=== PATIENT | female | born 1965 | race Caucasian/White ===

== ENCOUNTER 2023-10-17 07:37 | Inpatient (IN) ==
--- NOTE | 2023-09-20 10:34 | PAT Medication Instructions ---
Medication Instructions Date of Service September 20, 2023 Home Medications Medication Instructions Recorded miscellaneous medical supply #1 ea 09/06/22 blood pressure test kit-medium #1 ea 09/07/22 albuterol sulfate 90 mcg/actuation 2 inh inhalation Q6H PRN Wheezing 12/15/22 aerosol inhaler and SOB #3 Inhalers acetaminophen 325 mg tablet (Tylenol) 650 mg PO BID PRN albuterol sulfate 90 mcg/actuation aerosol inhaler 2 inh inhalation Q6H PRN cyanocobalamin (vitamin B-12) 1,000 mcg tablet (Vitamin B-12) 1,000 mcg PO QAM ibuprofen 200 mg tablet 200 mg PO Q6H PRN ASK your surgeon for instructions ibuprofen 200 mg tablet 200 mg PO Q6H PRN DO NOT take the morning of surgery cyanocobalamin (vitamin B-12) 1,000 mcg tablet (Vitamin B-12) 1,000 mcg PO QAM Take morning of surgery With a small sip of water, OTHERWISE NOTHING TO EAT OR DRINK AFTER MIDNIGHT: acetaminophen 325 mg tablet (Tylenol) 650 mg PO BID PRN(if needed) albuterol sulfate 90 mcg/actuation aerosol inhaler 2 inh inhalation Q6H PRN(use if needed; please bring with you to hospital day of surgery if possible) Take evening before surgery acetaminophen 325 mg tablet (Tylenol) 650 mg PO BID PRN(if needed) albuterol sulfate 90 mcg/actuation aerosol inhaler 2 inh inhalation Q6H PRN(if needed) Other Notes If you have any questions please call us at [phone] or [phone] or [phone] or [phone]
--- NOTE | 2023-09-26 13:23 | Anesthesiology Consultation ---
Date of Service September 26, 2023 Assessment & Plan (1) Encounter for pre-operative examination: - awaiting surgeon ordered medical clearance. Chart Review Chart Review: Pending: Refer to Additional Notes / Consult section and Patient seen in Pre Admission Testing Teaching & Discussion Pre-Anesthesia Teaching/Discussion Notes: Instructed NPO after midnight before surgery, except medications with 15 cc of water. Medication instructions provided according to the PAT guidelines. History Surgery Operation Date: 10/17/23 10:05 Proposed Procedures p L4-L5 Decompression and Fusion with Spinal Cord Monitoring - Bienvenido Babb DO Height/Weight Height: 5 ft 3 in Weight: 58.2 kg Allergies Allergy/AdvReac Type Severity Reaction Status Date / Time tramadol Allergy Intermediate hives, Verified 09/20/23 09:04 itchy Medications Home Medications Medication Instructions Recorded Confirmed Last Taken acetaminophen 325 mg tablet 650 mg PO BID PRN Pain 06/16/20 09/20/23 04/01/22 10:30 (Tylenol) miscellaneous medical supply #1 ea 09/06/22 09/05/23 Unknown blood pressure test kit-medium #1 ea 09/07/22 09/05/23 Unknown albuterol sulfate 90 mcg/actuation 2 inh inhalation Q6H PRN Wheezing 12/15/22 09/20/23 Unknown aerosol inhaler and SOB #3 Inhalers cyanocobalamin (vitamin B-12) 1,000 mcg PO QAM 09/20/23 09/20/23 Unknown 1,000 mcg tablet (Vitamin B-12) ibuprofen 200 mg tablet 200 mg PO Q6H PRN Pain 09/20/23 09/20/23 Unknown Past Medical History Medical History (Updated 09/26/23 @ 14:02 by Alysha Troncoso PA-C) Alcohol abuse 5-6 beers per day Chronic back pain Cigarette smoker COPD (chronic obstructive pulmonary disease) controlled, stable per pt; last rescue inhaler use 1 month ago Gallbladder sludge GERD (gastroesophageal reflux disease) controlled, stable per pt HTN (hypertension) had been on lisinopril for HTN. pt stopped d/t SE. not currently taking medication for HTN. Lumbar radiculopathy Lung nodule PCP monitoring Migraine HX Sacroiliitis Patient denies h/o stroke, seizures, heart attack, heart failure, DM, blood clots/DVTs or blood transfusions. Exercise / Class Metabolic Activity III < 4 Walking/Shop/Light housework (denies chest discomfort or shortness of breath with usual activities) Past Family History Family History Daughter Breast cancer Sister Cervical cancer Breast cancer Lung cancer Mother Heart disease Kidney disease Myocardial infarction COPD (chronic obstructive pulmonary disease) Stroke Diabetes Father Myocardial infarction Lung disease Grandfather Myocardial infarction Grandmother Myocardial infarction Brother Heart disease Myocardial infarction Parkinson disease Colorectal cancer Uncle Leukemia Sister Breast cancer Brother Prostate cancer Other No family history of adverse response to anesthesia Past Surgical History Surgical History (Updated 09/26/23 @ 14:00 by Alysha Troncoso PA-C) H/O foot surgery x5 on left History of anesthesia reaction slow to wake up, denies needing re-intubation History of appendectomy History of bilateral tubal ligation History of delivery x3 History of colonoscopy 2021 History of colposcopy History of dilation and curettage History of esophagogastroduodenoscopy (EGD) History of lumbar spinal fusion x2 History of tonsillectomy History of wisdom tooth extraction Past Anesthesia History No Family Hx of Anesthesia Complications and Other (slow to wake ) History of PONV No Hx of PONV and No Hx of Motion Sickness Social History Smoking Status: Current every day smoker (-advised) tobacco type: cigarettes Smoking cigarettes per day: 3 Do You Dip or Chew Tobacco: No Hx Alcohol Use: Yes Alcohol type: beer alcohol intake frequency: 3 or more drinks per day Alcohol Intake Frequency Comment: 5-6 per day; denies h/o withdrawal, seizures or tremors Hx Substance Use: No substance use type: does not use Review of Systems Snoring, denies witnessed apneas. Patient denies chest pain, shortness of breath, dyspnea on exertion, fever, chills, cough, wheezing, or palpitations. Physical Exam Vital Signs Vitals BP 134/86 P 88 TEMP 97.9 SP02 96% on RA RESP 17 Physical Patient resting comfortably in chair in no acute distress, alert and oriented, responding appropriately throughout visit Full cervical extension range of motion without pain TMD 3.5 finger breadths Mallampati Score 2 Dentition: one broken tooth; denies loose teeth, caps/crowns, implants or bridges Lungs: normal respiratory effort. Good air movement, clear throughout to auscultation, no adventitious breath sounds Cardiac: regular rate and rhythm, no murmurs noted Carotid arteries: negative bruit bilat Lab Results Anesthesia Preop Results Results Anesthesia Widget: WBC 6.89 K/ul (4.8-10.8) 09/07/23 Hgb 14.2 g/dl (12.0-16.0) 09/07/23 Hct 42.7 % (37.0-47.0) 09/07/23 Plt 277 K/uL (130-400) 09/07/23 Na 140 mmol/L (136-145) 09/07/23 K 4.2 mmol/L (3.5-5.1) 09/07/23 Cl 107 mmol/L (98-107) 09/07/23 CO2 28 mmol/L (21-32) 09/07/23 BUN 10 mg/dl (6-23) 09/07/23 Creat 0.50 mg/dl (0.6-1.2) L 09/07/23 Glucose Level 93 mg/dl (70-99(Fasting)) 09/07/23 PT 10.6 Seconds (9.0-12.0) 09/26/23 PTT 25 Seconds (21-31) 09/26/23 INR 1.0 (0.9-1.1) 09/26/23 Urine Color Yellow 09/26/23 Urine Appearance Clear (Clear) 09/26/23 Urine pH 5.0 (4.5-7.5) 09/26/23 Urine Specific [place] 1.009 (1.000-1.030) 09/26/23 Urine Protein Negative (Negative) 09/26/23 Urine Glucose (UA) Negative (Negative) 09/26/23 Urine Ketones Negative (Negative) 09/26/23 Urine Blood Negative (Negative) 09/26/23 Urine Nitrite Negative (Negative) 09/26/23 Urine Bilirubin Negative (Negative) 09/26/23 Urine Urobilinogen Negative (Negative) 09/26/23 Urine Leukocyte Esterase Trace (Negative) H 09/26/23 Urine WBC (Auto) 1-5 /hpf (0-5) 09/26/23 Urine RBC (Auto) 0-4 /hpf (0-4) 09/26/23 Urine Hyaline Casts (Auto) 1-5 /lpf (0-5) 09/26/23 Urine Epithelial Cells (Auto) >30 /lpf (0-5) H 09/26/23 Urine Bacteria (Auto) Negative (Negative) 09/26/23 Blood Type O Positive 09/26/23 Antibody Screen NEGATIVE 09/26/23 Testing Electrocardiogram Date: 02/03/23 Sinus rhythm, rate 63 bpm Other Testing Chest CT 11/09/22 Stable right lung pulmonary nodules consistent with a benign nature superimposed upon mild emphysematous changes Minimal interval increase in a 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
[~2023-10-17 07:37] MED LIST: DEXAMETHASONE SOD INJ 4 MG/ML VIAL ONE; GLYCOPYRROLATE 0.2 MG/ML VIAL ONE; LIDOCAINE 2% 2 ML VIAL/AMP(20MG/ML) INFIL ONE; MIDAZOLAM HCL 1 MG/ML 2ML VIAL ONE; ONDANSETRON INJ 2 MG/ML 2 ML VIAL ONE; PROPOFOL IV EMULSION 10 MG/ML 20 ML VIAL IV ONE; ROCURONIUM BROMIDE 10 MG/ML 5 ML VIAL IV ONE; SUGAMMADEX SODIUM 200 MG/2 ML VIAL IV ONE; fentaNYL citrate PF 100 MCG/2 ML VIAL ONE
[2023-10-17] MEDS: ACETAMINOPHEN 500 MG TAB PO SCH (08:32)
[2023-10-17] MEDS: GABAPENTIN 600 MG DOSE PO SCH (08:32)
[2023-10-17] MEDS: LR 60ML/HR IV SCH (08:32)
[2023-10-17] MEDS: CeleBREX 200 MG CAP PO SCH (08:32)
[2023-10-17] MEDS: LR 15ML/HR IV SCH (08:33)
--- NOTE | 2023-10-17 09:36 | History & Physical Bridge Note ---
Date of Service October 17, 2023 History & Physical Bridge Note I have examined the patient, reviewed the History & Physical and in the interval since the performance of the History & Physical I have noted the following changes of clinical significance: no changes noted
--- NOTE | 2023-10-17 09:37 | History & Physical Report ---
Date of Service October 17, 2023 History of Present Illness Chief Complaint: Back and leg pain Primary Care Provider: Sandy Chase DO This is a 4-year-old female who presents with chronic persistent back and leg pain and failing course of nonoperative care she is here for surgical invention. Allergies Allergy/AdvReac Type Severity Reaction Status Date / Time tramadol Allergy Intermediate hives, Verified 10/17/23 08:08 itchy Home Medications Medication Instructions Recorded Confirmed Type acetaminophen 325 mg tablet 650 mg PO BID PRN Pain 06/16/20 10/17/23 History (Tylenol) miscellaneous medical supply #1 ea 09/06/22 09/29/23 Rx blood pressure test kit-medium #1 ea 09/07/22 09/29/23 Rx albuterol sulfate 90 mcg/actuation 2 inh inhalation Q6H PRN Wheezing 12/15/22 10/17/23 Rx aerosol inhaler and SOB #3 Inhalers cyanocobalamin (vitamin B-12) 1,000 mcg PO QAM 09/20/23 10/17/23 History 1,000 mcg tablet (Vitamin B-12) ibuprofen 200 mg tablet 200 mg PO Q6H PRN Pain 09/20/23 09/29/23 History Past Med/Surg History Medical History GERD (gastroesophageal reflux disease) Cigarette smoker Alcohol abuse Gallbladder sludge COPD (chronic obstructive pulmonary disease) HTN (hypertension) Migraine Chronic back pain Lumbar radiculopathy Sacroiliitis Lung nodule Surgical History History of anesthesia reaction History of bilateral tubal ligation History of lumbar spinal fusion History of esophagogastroduodenoscopy (EGD) History of appendectomy History of wisdom tooth extraction History of tonsillectomy History of colonoscopy H/O foot surgery History of dilation and curettage History of colposcopy History of delivery Family History Daughter Breast cancer Sister Cervical cancer Breast cancer Lung cancer Mother Heart disease Kidney disease Myocardial infarction COPD (chronic obstructive pulmonary disease) Stroke Diabetes Father Myocardial infarction Lung disease Grandfather Myocardial infarction Grandmother Myocardial infarction Brother Heart disease Myocardial infarction Parkinson disease Colorectal cancer Uncle Leukemia Sister Breast cancer Brother Prostate cancer Other No family history of adverse response to anesthesia Social History Smoking Status: Current every day smoker (-advised) Tobacco Type: Cigarettes packs per day: 0.5; Cigarettes Per Day: 3; Second Hand Exposure: Yes (ON OCC); Do You Dip or Chew Tobacco: No; Tobacco Cessation Education Requested by Patient: No Hx Alcohol Use: Yes Alcohol type: beer Alcohol Intake Frequency: 2-3 x/Week Hx Substance Use: No Preferred Language: [place]atian Communication Ability: Effective Visual Impairment: No Limitations Repair Order Clerk Required: No Beliefs That Will Affect Care: None marital status: / Current Living Situation: Significant Other current occupational status: disabled How many Children do You have: 3 Feels Safe at Home: Yes Safety Concerns: Feels Safe At This Time during the past year weight has: increased > 10 lbs Do you think of yourself as: straight/heterosexual Gender Identity: Female Assistive Devices: None Physical Exam Physical Exam: Patient is a alert and oriented heart regular rate and rhythm lungs clear Results & Data Results & Data Vital Signs (Past 12 Hours) Vital Signs Temp Pulse Resp BP Pulse Ox O2 Del Method 10/17/23 08:16 36.4 C L 79 21 167/105 H 97 Room Air
--- NOTE | 2023-10-17 09:38 | History & Physical Report ---
Date of Service October 17, 2023 Assessment & Plan (1) Lumbar disc herniation with radiculopathy: Plan: L4-L5 decompression and fusion History of Present Illness Chief Complaint: Back and leg pain Primary Care Provider: Sandy Chase DO This is a 58-year-old female who presents with chronic persistent back and leg pain. Allergies Allergy/AdvReac Type Severity Reaction Status Date / Time tramadol Allergy Intermediate hives, Verified 10/17/23 08:08 itchy Home Medications Medication Instructions Recorded Confirmed Type acetaminophen 325 mg tablet 650 mg PO BID PRN Pain 06/16/20 10/17/23 History (Tylenol) miscellaneous medical supply #1 ea 09/06/22 09/29/23 Rx blood pressure test kit-medium #1 ea 09/07/22 09/29/23 Rx albuterol sulfate 90 mcg/actuation 2 inh inhalation Q6H PRN Wheezing 12/15/22 10/17/23 Rx aerosol inhaler and SOB #3 Inhalers cyanocobalamin (vitamin B-12) 1,000 mcg PO QAM 09/20/23 10/17/23 History 1,000 mcg tablet (Vitamin B-12) ibuprofen 200 mg tablet 200 mg PO Q6H PRN Pain 09/20/23 09/29/23 History Past Med/Surg History Medical History GERD (gastroesophageal reflux disease) Cigarette smoker Alcohol abuse Gallbladder sludge COPD (chronic obstructive pulmonary disease) HTN (hypertension) Migraine Chronic back pain Lumbar radiculopathy Sacroiliitis Lung nodule Surgical History History of anesthesia reaction History of bilateral tubal ligation History of lumbar spinal fusion History of esophagogastroduodenoscopy (EGD) History of appendectomy History of wisdom tooth extraction History of tonsillectomy History of colonoscopy H/O foot surgery History of dilation and curettage History of colposcopy History of delivery Family History Daughter Breast cancer Sister Cervical cancer Breast cancer Lung cancer Mother Heart disease Kidney disease Myocardial infarction COPD (chronic obstructive pulmonary disease) Stroke Diabetes Father Myocardial infarction Lung disease Grandfather Myocardial infarction Grandmother Myocardial infarction Brother Heart disease Myocardial infarction Parkinson disease Colorectal cancer Uncle Leukemia Sister Breast cancer Brother Prostate cancer Other No family history of adverse response to anesthesia Social History Smoking Status: Current every day smoker (-advised) Tobacco Type: Cigarettes packs per day: 0.5; Cigarettes Per Day: 3; Second Hand Exposure: Yes (ON OCC); Do You Dip or Chew Tobacco: No; Tobacco Cessation Education Requested by Patient: No Hx Alcohol Use: Yes Alcohol type: beer Alcohol Intake Frequency: 2-3 x/Week Hx Substance Use: No Preferred Language: Welsh Communication Ability: Effective Visual Impairment: No Limitations Lead Pharmacy Technician Required: No Beliefs That Will Affect Care: None marital status: / Current Living Situation: Significant Other current occupational status: disabled How many Children do You have: 3 Feels Safe at Home: Yes Safety Concerns: Feels Safe At This Time during the past year weight has: increased > 10 lbs Do you think of yourself as: straight/heterosexual Gender Identity: Female Assistive Devices: None Physical Exam Physical Exam: Patient is alert and oriented heart regular rate and rhythm Lungs clear Results & Data Results & Data Vital Signs (Past 12 Hours) Vital Signs Temp Pulse Resp BP Pulse Ox O2 Del Method 10/17/23 08:16 36.4 C L 79 21 167/105 H 97 Room Air
[2023-10-17] MEDS ORDERED: ONDANSETRON INJ 2 MG/ML 2 ML VIAL IV PRN ×2 (09:43→12:42)
[2023-10-17] MEDS ORDERED: ePHEDrine sulfate 50 MG/ML AMP IV PRN (09:43)
[2023-10-17] MEDS ORDERED: ATROPINE SULFATE 0.1 MG/ML 10ML SYR IV PRN (09:43)
[2023-10-17] MEDS: ceFAZolin 2000MG 2,000 MG/15 ML SYR IV SCH (10:13)
[2023-10-17] MEDS ORDERED: ePHEDrine sulfate 50 MG/5 ML SYR ONE (10:46)
[2023-10-17] MEDS: FLOSEAL HEMOSTATIC MATRIX 10ML TOP ONE (11:32)
--- NOTE | 2023-10-17 11:39 | Operative Report ---
Post Operative Report Pre & Post Diagnosis Operation Date: 10/17/23 12:25 Pre-Op Diagnosis: Lumbar Disc Herniation with Radiculopathy Post-Op Diagnosis: Lumbar Disc Herniation with Radiculopathy I identified the patient and participated in the time-out.: Yes Procedure Operation Date: 10/17/23 12:25 Actual Procedures #1 lumbar decompression bilaterally facetectomies and foraminotomies L4-L5 #2 posterior spinal fusion L4-5 per #3 placed posterior instrumentation L4-5. #4 interbody fusion L4-L5 #5 placement of Spira 12 x 26 mm x 2 at L4-L5. #6 placement locally harvested morselized autograft in the posterior gutters. #7 placement infuse collagen sponge combined with Koros bone graft in the posterior lateral gutters and course bone graft in the interbody space. Surgeon Bienvenido Babb, Pressure Tester Tanya Lopez Estimated Blood Loss 100 Findings Consistent with Post-Op Diagnosis Specimens None Indications This is a 58-year-old female who presents manage diagnosis and failed course of nonoperative care is here for surgical invention. Description of Procedure Patient met with identified informed consent obtained. Patient was then taken to the operative suite underwent patient placed in a prone position ingestible top Ray frame. All bony prominences well-padded eyes inspected to ensure no external pressure placed upon the. This point the lumbar spine was prepped and draped in a sterile fashion. Sharp dissection with the assistance of Bovie cautery form down to and exposing the lamina and transverse processes of L4-L5. From caudal cephalad fashion complete laminectomy L4 was performed including bilaterally facetectomies and foraminotomies addressing severe spinal stenosis. Pedicle screws were then placed in L4-L5 bilaterally with assistance of fluoroscopy and proper size alex placed. By way of transforaminal approach on the right discectomy of L4-5 was performed endplates guarded to subcortical bleeding bone and a 12 x 26 mm Spira cage filled with coarse bone graft tapped in position. Then proceeded to the left transforaminal region completed the discectomy endplates curetted to subcortical bleeding bone and a second 12 x 26 mm spiral cage filled with coarse bone graft tapped in position. The rods were then compressed locked into final position bilaterally. The transverse processes of L4-5 burred to subcortical bleeding bone. Infuse collagen sponge, close bone graft and locally harvested morselized autograft placed in the posterior gutters. 15 round DEB inserted. The incision was then closed with 1 Vicryl fascia 2-0 Vicryl subcutaneously and 4 Monocryl for fascial closure. Steri-Strips sterile dressing placed. Patient waken taken to PACU in stable condition. Please note spinal cord monitoring was utilized at the procedure no changes noted. Lastly Tanya Lopez was present at the entire surgeon with the patient positioning complex portion of the surgery and fashion closure. I attest to the content of the Intraoperative Record and any orders documented therein. Any exceptions are noted below.
[2023-10-17] MEDS: BUPIVACAINE/EPINEPHRINE 0.5% MPF 1:200,000 10 ML VIAL INFIL ONE (11:40)
[2023-10-17] MEDS: ceFAZolin 1000MG 1,000 MG/7.5 ML SYR IV ONE (11:40)
--- NOTE | 2023-10-17 11:47 | Fluoroscopy Report ---
[place] lumbar spine 2-3V CLINICAL HISTORY: L4-L5 DECOMPRESSION AND FUSION COMPARISON STUDY: CT of the abdomen and pelvis March 21, 2020. FLUOROSCOPY TIME: 14 seconds. Ka, r: 9.34 mGy FLUOROSCOPIC IMAGES: 2 FINDINGS: Previous L5-S1 anterior discectomy fusion is noted. Fluoroscopy was provided during L4-L5 p osterior decompression, discectomy and bilateral pedicle screw fusion. Hardware is intact. IMPRESSION: Fluoroscopy provided during L4-L5 decompression and fusion. ACT 112: Negative or not required by law. Electronically signed by: Fabio Martinez M.D. 10/17/2023 11:45 AM
[2023-10-17] MEDS: fentaNYL citrate PF 100 MCG/2 ML VIAL IV PRN (11:54)
--- NOTE | 2023-10-17 12:40 | Anesthesiology Progress Note ---
Date of Service October 17, 2023 Anesthesia Post Procedure Vital Signs Vital Signs: Temp Pulse Pulse Resp BP BP Pulse Ox 10/17/23 12:20 103 H 20 136/90 93 10/17/23 12:10 104 H 20 139/95 94 10/17/23 12:00 119 H 18 145/95 H 97 10/17/23 11:50 97.9 F 132 H 16 125/96 98 10/17/23 08:16 97.5 F L 79 21 167/105 H 97 O2 Del Method 10/17/23 12:20 Room Air 10/17/23 12:10 Room Air 10/17/23 12:00 Room Air 10/17/23 11:50 Room Air 10/17/23 08:16 Room Air Pain Intensity Back: Pain Intensity: 2 Transfer of Care Handoff Completed per policy Notes Mental Status: alert / awake / arousable and participated in evaluation Patient Amnestic to Procedure: Yes Nausea / Vomiting: adequately controlled Pain: adequately controlled Airway Patency, RR, SpO2: stable & adequate BP & HR: stable & adequate Hydration State: stable & adequate Anesthetic Complications: no major complications apparent and Pt Satisfied with anesthetic care
[2023-10-17] MEDS ORDERED: DO NOT ADMINISTER FLU VACCINE PRN (12:42)
[2023-10-17] MEDS ORDERED: HYDROmorphone INJ 0.5 MG/0.5 ML SYR IV PRN (12:42)
[2023-10-17] MEDS ORDERED: DO NOT ADMINISTER PNEUMOCOCCAL VACCINE PRN (12:42)
[2023-10-17] MEDS ORDERED: LORazepam 0.5 MG TAB PO PRN (12:42)
[2023-10-17] MEDS ORDERED: hydrOXYzine HCl 25 MG TAB PO PRN (12:42)
[2023-10-17] MEDS ORDERED: PROMETHAZINE HCL 12.5 MG in SODIUM CHLORIDE 0.9% 50 ML IV PRN (12:42)
[2023-10-17] MEDS ORDERED: METOCLOPRAMIDE HCL INJ 5 MG/ML 2 ML VIAL IV PRN (12:42)
[2023-10-17] MEDS ORDERED: bisacodyL 10 MG SUPP PR PRN (12:42)
[2023-10-17] MEDS ORDERED: SOD PHOSPHATE/SOD BIPHOSPHATE ENEMA 132 ML BTL PR PRN (12:42)
[2023-10-17] MEDS ORDERED: ACETAMINOPHEN 1,000 MG/100 ML VIAL IV PRN (12:42)
[2023-10-17] MEDS ORDERED: ALUMINUM/MAGNESIUM SUSP 30 ML UDC PO PRN (12:42)
[2023-10-17] MEDS ORDERED: HYDROmorphone INJ 1 MG/ML SYRINGE IV PRN (12:42)
[2023-10-17] MEDS ORDERED: NALOXONE HCL 0.4 MG/1 ML VIAL/CARP IV PRN (12:42)
[2023-10-17] MEDS ORDERED: ALBUTEROL HFA 8 GM INHALER INH PRN (12:42)
[2023-10-17] MEDS ORDERED: LORazepam 0.5 MG in SYRINGE 0.25 ML IV PRN (12:42)
[2023-10-17] MEDS ORDERED: ONDANSETRON 4 MG OD TAB PO PRN (12:42)
[2023-10-17] MEDS ORDERED: FAMOTIDINE 20 MG TAB PO PRN (12:42)
[2023-10-17] MEDS ORDERED: MAGNESIUM HYDROXIDE SUSP 30 ML UDC PO PRN (12:42)
[2023-10-17] MEDS: LACTATED RINGER'S 1,000 ML IV SCH (13:07)
--- NOTE | 2023-10-17 13:13 | Hospitalist Consultation ---
Date of Consultation October 17, 2023 Assessment & Plan (1) Status post lumbar spine surgery for decompression of spinal cord: L4/L5 decompression with Dr. Babb on 10/17/23 Postop lumbar spine x-ray showed hardware intact Perioperative antibiotics, pain control, DVT PPx, and fluids per the primary team Agree with a.m. CBC, BMP, Hep C screen; we will follow Activity as tolerated PT consulted (2) Alcohol use: Patient reports she drinks 6-7 alcoholic drinks daily; beer; last drink on Saturday 10/14 Patient denies history of alcohol withdrawal or seizures Given tachycardia and hypertension post-op, we will place on the at risk AWSS protocol w/ lorazepam 1 mg IV as needed (3) Sinus tachycardia: Resolved; ranging from 103 bpm -132 bpm following the procedure EKG revealed sinus rhythm with marked sinus arrhythmia at 70 bpm; QTc 427 Unclear if secondary to alcohol withdrawal, or more likely stress or anxiety- induced postop Clinically, patient denies CP, SOB, or pleuritic CP Continue to monitor (4) Hypertension: BP 152/95 at time of consult Not on home BP medications Will defer lowering BP at this time given recent surgery Plan Agree with medical management as above: Disposition: MedSurg Clear liquid diet for now and advance to low-fat diet as tolerated PT PPx: SCDs/teds Thank you for allowing us to participate in the care of this patient, please reach out with any questions or concerns; we will continue to follow. Supervising Physician Co-Signing Physician Notes NO Stoddard Note: I personally saw and examined the patient. I verified all saha points and agree with NO Moreau with the following exceptions and/or additions: S-Pt seen in the evening and reports feeling well. Tachycardia has resolved. Had some left sided chest pain earlier that went away with belching. She wants to have solid food. Was just up to the bathroom and back with walker History and ROS reviewed otherwise as above O- Vitals reviewed Gen: [AAOx3, NAD] HEENT: [anicteric sclerae, EOMI] CV: [RRR no mgr nl S1S2] Pulm: [CTAB no wcr] back: dressing in pace c/d/i, DEB drain with bloody fluid draining ECG personally reviewed A/P-58 yo female here with lumbar DCF, hospitalist consulted for post op med management. Sinus tach resolved watch for EtOH withdrawal Continue IVFs, pain control follow CBC, BMP change diet to low fat due to ongoing gallbladder issues History of Present Illness Reason for Consultation: Medical management Requesting Physician: Bienvenido Babb DO Attending Physician: Bienvenido Babb DO History of Present Illness Frieda is a 58-year-old female with PMH of lumbar radiculopathy, COPD, DEWAYNE-2, tobacco use, and HTN. She presented for an L4-L5 decompression and fusion with Dr. Bienvenido Babb on 10/17/2023. Per review of operative note, EBL was listed as 100 cc, and findings of lumbar disc herniation with radiculopathy was consistent with preop diagnosis. Patient endorses only mild, achy lower back pain at time of consult, which she rates 2/10. No radiation of the back or down the legs. No stabbing pain in her back. She has been drinking water okay since being up. No home supplemental oxygen use or CPAP. She has no new complaints at time of consult. She does note that she is a current everyday tobacco cigarette smoker; 5 cigarettes/day. She also notes that she drinks 6-7 beers daily, with last beer on Saturday 10/14. She denies history of alcohol withdrawal or seizures. She reports that she did not take any medications before coming to the hospital this morning. Per review of patient's vitals, she has been mildly tachycardic postop and is 107 bpm at time of consult; vitals have otherwise been stable. ROS: Patient endorses mild lower back pain. Patient denies fever, chills, sweating, CP, chest palpitations, SOB, saddle anesthesia, or numbness/tingling/pain in the legs. Allergies Allergy/AdvReac Type Severity Reaction Status Date / Time tramadol Allergy Intermediate hives, Verified 10/17/23 08:08 itchy Home Medications Medication Instructions Recorded Confirmed Type acetaminophen 325 mg tablet 650 mg PO BID PRN Pain 06/16/20 10/17/23 History (Tylenol) miscellaneous medical supply #1 ea 09/06/22 09/29/23 Rx blood pressure test kit-medium #1 ea 09/07/22 09/29/23 Rx albuterol sulfate 90 mcg/actuation 2 inh inhalation Q6H PRN Wheezing 12/15/22 10/17/23 Rx aerosol inhaler and SOB #3 Inhalers cyanocobalamin (vitamin B-12) 1,000 mcg PO QAM 09/20/23 10/17/23 History 1,000 mcg tablet (Vitamin B-12) ibuprofen 200 mg tablet 200 mg PO Q6H PRN Pain 09/20/23 09/29/23 History hydrocodone 5 mg-acetaminophen 325 1 tab PO Q6H PRN pain #30 tabs 10/17/23 Rx mg tablet Patient History Medical History GERD (gastroesophageal reflux disease) Cigarette smoker Alcohol abuse Gallbladder sludge COPD (chronic obstructive pulmonary disease) HTN (hypertension) Migraine Chronic back pain Lumbar radiculopathy Sacroiliitis Lung nodule Surgical History History of anesthesia reaction History of bilateral tubal ligation History of lumbar spinal fusion History of esophagogastroduodenoscopy (EGD) History of appendectomy History of wisdom tooth extraction History of tonsillectomy History of colonoscopy H/O foot surgery History of dilation and curettage History of colposcopy History of delivery Family History Daughter Breast cancer Sister Cervical cancer Breast cancer Lung cancer Mother Heart disease Kidney disease Myocardial infarction COPD (chronic obstructive pulmonary disease) Stroke Diabetes Father Myocardial infarction Lung disease Grandfather Myocardial infarction Grandmother Myocardial infarction Brother Heart disease Myocardial infarction Parkinson disease Colorectal cancer Uncle Leukemia Sister Breast cancer Brother Prostate cancer Other No family history of adverse response to anesthesia Social History Smoking Status: Current every day smoker (-advised) Tobacco Type: Cigarettes packs per day: 0.5; Cigarettes Per Day: 3; Second Hand Exposure: Yes (ON OCC); Do You Dip or Chew Tobacco: No; Tobacco Cessation Education Requested by Patient: No Hx Alcohol Use: Yes Alcohol type: beer Alcohol Intake Frequency: 2-3 x/Week Hx Substance Use: No Preferred Language: Irish Communication Ability: Effective Visual Impairment: No Limitations Glass Artist Required: No Beliefs That Will Affect Care: None marital status: / Current Living Situation: Significant Other current occupational status: disabled How many Children do You have: 3 Feels Safe at Home: Yes Safety Concerns: Feels Safe At This Time during the past year weight has: increased > 10 lbs Do you think of yourself as: straight/heterosexual Gender Identity: Female Assistive Devices: None Review of Systems Review of Systems: See HPI above Physical Exam Physical Exam: General: no acute distress; pleasant affect; non-toxic appearing; cooperative; 98% SpO2 on RA HEENT: normocephalic, atraumatic; no scleral icterus; PERRLA; moist mucus membrane; vision and hearing intact Neck: supple;no lymphadenopathy; trachea midline Skin: warm, dry without signs of tenting; no cyanosis; no rashes, bruising, lesions, or erythema noted CV: chest wall NTP; RR, tachycardic at 108 bpm; S1/S2 normal; no murmurs/rubs/gallops; pulses intact and symmetric at radial, DP, and PT Lungs: no acute respiratory distress; symmetrical chest wall expansion; clear breath sounds across all lung looney w/o adventitious sounds; no wheezing ABD: Soft, NTP; BS present; no rebound/guarding; no ascites; no distention Back: Surgical dressing without signs of erythema, drainage; lower back NTP; drain in place MSK: no tics or fasciculations; no edema noted in the LEs b/l, nonerythematous (SCDs/teds in place); patient demonstrates the ability to wiggle toes bilaterally; LEs neurovascularly intact Neuro: A&Ox3; normal mood and affect; fluent speech; no focal deficits; reports equal, symmetric sensation grossly intact in the LEs b/l assessed via light touch at the feet Results & Data Results & Data Vital Signs (Past 12 Hours) Vital Signs Temp Pulse Pulse Resp BP BP Pulse Ox 10/17/23 12:50 10/17/23 12:50 36.3 C L 105 H 16 132/90 94 10/17/23 12:20 36.6 C 103 H 20 136/90 93 10/17/23 12:10 104 H 20 139/95 94 10/17/23 12:00 119 H 18 145/95 H 97 10/17/23 11:50 36.6 C 132 H 16 125/96 98 10/17/23 08:16 36.4 C L 79 21 167/105 H 97 O2 Del Method 10/17/23 12:50 Room Air 10/17/23 12:50 Room Air 10/17/23 12:20 Room Air 10/17/23 12:10 Room Air 10/17/23 12:00 Room Air 10/17/23 11:50 Room Air 10/17/23 08:16 Room Air Diagnostic Findings Lumbar Spine X-Ray 10/17/23 12:25 [place] lumbar spine 2-3V CLINICAL HISTORY: L4-L5 DECOMPRESSION AND FUSION COMPARISON STUDY: CT of the abdomen and pelvis March 21, 2020. FLUOROSCOPY TIME: 14 seconds. Ka, r: 9.34 mGy FLUOROSCOPIC IMAGES: 2 FINDINGS: Previous L5-S1 anterior discectomy fusion is noted. Fluoroscopy was provided during L4-L5 posterior decompression, discectomy and bilateral pedicle screw fusion. Hardware is intact. IMPRESSION: Fluoroscopy provided during L4-L5 decompression and fusion. ACT 112: Negative or not required by law. Electronically signed by: Fabio Martinez M.D. 10/17/2023 11:45 AM PG Care Time/CCT Total # of Minutes Spent Total Time Spent with Patient: Total time spent is greater than 50% in coordination of care (as documented) at patient's floor/unit and/or counseling patient: Coding [place] [address] IN/OBS CONSULT LVL 3,45M Patient Type Established Medical Decision Making Moderate Complexity Diagnoses Status post lumbar spine surgery for decompression of spinal cord Z98.890 Alcohol use Z72.89 Sinus tachycardia R00.0 Hypertension I10
[2023-10-17] MEDS ORDERED: LORazepam 1 MG in SYRINGE 0.5 ML IV PRN (13:44)
[2023-10-17] MEDS: ceFAZolin 1000MG 1,000 MG/7.5 ML SYR IV SCH (16:44)
[2023-10-17] MEDS: oxyCODONE HCL IR 5 MG TAB (IMMEDIATE RELEASE) PO PRN (16:46)
[2023-10-17] MEDS: ceFAZolin 330 MG/ML 1 GM VIAL ONE (19:09)
[2023-10-17] MEDS: BUPIVACAINE/EPINEPHRINE 0.5% MPF 1:200,000 30 ML VIAL ONE (19:09)
[2023-10-17] MEDS: DOCUSATE SODIUM/SENNA 50/8.6MG TAB PO SCH (20:20)
[2023-10-18] MEDS: POLYETHYLENE (MIRALAX) 17 GM PACK PO SCH (05:11)
[2023-10-18] MEDS: POLYETHYLENE (MIRALAX) 17 GM PACK ONE (05:14)
--- NOTE | 2023-10-18 06:15 | Electrocardiogram Report ---
Test Reason : Blood Pressure : / mmHG Vent. Rate : 070 BPM Atrial Rate : 070 BPM P-R Int : 140 ms QRS Dur : 082 ms QT Int : 396 ms P-R-T Axes : 051 020 043 degrees QTc Int : 427 ms Sinus rhythm with marked sinus arrhythmia Possible Left atrial enlargement Borderline ECG When compared with ECG of 29-MAR-2022 11:35, No significant change was found Confirmed by Juan Barrios ([id number]) on 10/18/2023 6:15:03 AM Referred By: Bienvenido Babb Confirmed By:Juan Barrios
[2023-10-18] MEDS: CYANOCOBALAMIN (B-12) 500 MCG TABLET PO SCH (07:43)
[2023-10-18] MEDS: dexAMETHasone 6 MG in SYRINGE 0 ML IV SCH (07:43)
[2023-10-18] MEDS: COUGH DROP (SUGAR FREE) LOZ 24 LOZ/1 BOX BUCCAL ONE (07:43)
[2023-10-18 08:49] LABS: Basophils # (auto) 0.03 K/uL (0.00-0.20); Basophils % (auto) 0.3 %; Eosinophils # (auto) 0.01 K/uL (0.00-0.50); Eosinophils % (auto) 0.1 %; Hematocrit (blood only) 33.7 % (37.0-47.0); Hemoglobin 11.1 g/dl (12.0-16.0); Immature Granulocytes # (auto) 0.07 K/uL (0.01-0.20); Immature Granulocytes % (auto) 0.6 %; Lymphocytes # (auto) 2.49 K/uL (1.20-3.40); Lymphocytes % (auto) 21.6 %; Mean Corpuscular Hemoglobin 32.1 pg (25.0-34.0); Mean Corpuscular Hgb Conc 32.9 g/dL (32.0-36.0); Mean Corpuscular Volume 97.4 fL (80.0-100.0); Mean Platelet Volume 10.4 fL (9.4-12.4); Monocytes % (auto) 8.7 %; Neutrophils # (auto) 7.93 K/uL (1.40-6.50); Neutrophils % (auto) 68.7 %; Platelet Count 211 K/uL (130-400); RDW Coefficient of Variation 13.3 % (11.5-14.5); RDW Standard Deviation 47.8 fL (36.4-46.3); Red Blood Count 3.46 M/uL (4.20-5.40); White Blood Count 11.53 K/ul (4.8-10.8)
[2023-10-18 09:13] LABS: Calcium 8.9 mg/dl (8.6-10.3); Est GFR (African American) 126.2 ml/min; Est GFR (Non-African American) 108.9 ml/min; Potassium 3.9 mmol/L (3.5-5.1)
--- NOTE | 2023-10-18 10:29 | Hospitalist Progress Note ---
Date of Service October 18, 2023 Assessment & Plan (1) Status post lumbar spine surgery for decompression of spinal cord: Plan: L4/L5 decompression with Dr. Babb on 10/17/23 Postop lumbar spine x-ray showed hardware intact Perioperative antibiotics, pain control, bowel regimen per the primary team-pain controlled, no BM yet Itching under dressing-asked RN to change out dressing-will give one time dose Zyrtec and assess for rash from adhesive tape. COuld be itchy from blood soaked dressing CBC with hgb drop to 11 form 14-HD stable, monitor CBC, BMP again in AM PT consulted (2) Alcohol use: Plan: Patient reports she drinks 6-7 alcoholic drinks daily; beer; last drink on Saturday 10/14 Patient denies history of alcohol withdrawal or seizures Given tachycardia and hypertension post-op, placed on the at risk AWSS protocol w/ lorazepam 1 mg IV as needed-has not neeeded and vitals now normal with pain control and IVFs Continue to monitor (3) Sinus tachycardia: Plan: Resolved; ranging from 103 bpm -132 bpm following the procedure EKG revealed sinus rhythm with marked sinus arrhythmia at 70 bpm; QTc 427 likely stress/pain-induced postop Clinically, patient denies CP, SOB, or pleuritic CP Continue to monitor (4) Hypertension: Plan: BPs elevated at times but now normal Not on home BP medications Will defer lowering BP at this time given recent surgery Plan Disposition: MedSurg, continued stay DVT proph: SCDs/teds Thank you for allowing us to participate in the care of this patient, please reach out with any questions or concerns; we will continue to follow. Admission and Anticipated Discharge Date Admission Date: October 17, 2023 Subjective Pt has some back pain but controlled. Having itching underneath dressing lower back that is fairly significant, no rash anywhere or itching anywhere else. Denies any other problems. No BM yet Physical Exam Constitutional: WD/WN, vitals as above Respiratory: normal respiratory effort, lungs clear to auscultation Cardiovascular: RRR, no murmur, no edema Gastrointestinal (Abdomen): normal bowel sounds, soft, nontender, no hepatosplenomegaly Skin: dressing lower back soaked with blood, dried serosang fluid on chux pad underneath, DEB drain with bloody drainage Neurologic: no focal motor deficits and not confused Psychiatric: A+Ox3, euthymic affect Results & Data Results & Data Vital Signs (Past 12 Hours) Vital Signs Temp Pulse Resp BP Pulse Ox O2 Del Method 10/18/23 07:14 36.6 C 65 16 135/78 96 Room Air 10/18/23 03:00 36.7 C 74 16 136/78 97 Room Air 10/17/23 23:00 36.7 C 82 16 136/82 97 Room Air Laboratory Results CBC, BMP reviewed PG Care Time/CCT Total # of Minutes Spent Total Time Spent with Patient: Total time spent is greater than 50% in coordination of care (as documented) at patient's floor/unit and/or counseling patient: Coding Level of Care Code 99581 SUB INP/OBS CARE 2/35MIN Diagnoses Status post lumbar spine surgery for decompression of spinal cord Z98.890 Alcohol use Z72.89 Sinus tachycardia R00.0 Hypertension I10
[2023-10-18] MEDS: CETIRIZINE HCL 10 MG TABLET PO ONE (11:37)
--- NOTE | 2023-10-18 12:54 | Orthopedic Progress Note ---
Date of Service October 18, 2023 Assessment & Plan (1) Lumbar disc herniation with radiculopathy: Plan: This time continue physical therapy monitor DEB operatively discharged home in the next day or so. Admission and Anticipated Discharge Date Admission Date: October 17, 2023 Subjective Back pain controlled leg pain markedly improved Physical Exam Physical Exam: Patient is sitting up in bed. She is concerned to testing. Appears comfortable. Results & Data Vital Signs (Past 12 Hours) Vital Signs Temp Pulse Resp BP Pulse Ox O2 Del Method 10/18/23 07:14 36.6 C 65 16 135/78 96 Room Air 10/18/23 03:00 36.7 C 74 16 136/78 97 Room Air
[2023-10-18] MEDS: diphenhydrAMINE Capsule 25 MG CAP PO PRN (20:37)
[2023-10-18] MEDS: diphenhydrAMINE 50 MG/ML VIAL IV STA (23:54)
[2023-10-19 07:04] LABS: Basophils # (auto) 0.03 K/uL (0.00-0.20); Basophils % (auto) 0.3 %; Eosinophils # (auto) 0.02 K/uL (0.00-0.50); Eosinophils % (auto) 0.2 %; Hematocrit (blood only) 30.7 % (37.0-47.0); Hemoglobin 10.4 g/dl (12.0-16.0); Immature Granulocytes # (auto) 0.07 K/uL (0.01-0.20); Immature Granulocytes % (auto) 0.6 %; Lymphocytes # (auto) 3.74 K/uL (1.20-3.40); Lymphocytes % (auto) 33.9 %; Mean Corpuscular Hemoglobin 32.7 pg (25.0-34.0); Mean Corpuscular Hgb Conc 33.9 g/dL (32.0-36.0); Mean Corpuscular Volume 96.5 fL (80.0-100.0); Mean Platelet Volume 10.9 fL (9.4-12.4); Monocytes # (auto) 1.02 K/uL (0.11-0.59); Monocytes % (auto) 9.2 %; Neutrophils # (auto) 6.16 K/uL (1.40-6.50); Neutrophils % (auto) 55.8 %; Platelet Count 208 K/uL (130-400); RDW Coefficient of Variation 13.4 % (11.5-14.5); RDW Standard Deviation 48.1 fL (36.4-46.3); Red Blood Count 3.18 M/uL (4.20-5.40); White Blood Count 11.04 K/ul (4.8-10.8)
[2023-10-19 07:19] LABS: Calcium 8.7 mg/dl (8.6-10.3); Creatinine Clr Calc Pharmacy 83.9 ml/min; Est GFR (African American) 115.5 ml/min; Est GFR (Non-African American) 99.6 ml/min; Potassium 3.4 mmol/L (3.5-5.1)
[2023-10-19] MEDS: POTASSIUM CHLORIDE 10 MEQ TABCR PO STA (08:55)
--- NOTE | 2023-10-19 12:26 | Discharge Summary ---
Date of Service October 19, 2023 Admission HPI Per Admitting Provider This is a 58-year-old female who presents with chronic persistent back and leg pain. Principal Diagnosis Lumbar degeneration with radiculopathy Discharge Data Allergies Allergy/AdvReac Type Severity Reaction Status Date / Time tramadol Allergy Intermediate hives, Verified 10/17/23 08:08 itchy Consultations 10/17/23 12:42 Consult Hospitalist Routine Procedures Performed Operation Date: 10/17/23 12:25 Actual Procedures p L4-L5 Decompression and Fusion, Spinal Cord Monitoring(Not Applicable) - Bienvenido Babb DO Ordered Studies 10/17/23 12:25 FL lumbar spine 2-3V Routine Hospital Course (1) Lumbar disc herniation with radiculopathy: Patient with lumbar decompression fusion trial as well as taken to orthopedic for postoperative. Postop patient progressed appropriately. Excellent strength testing. Pain well-controlled. DEB drain decreasing well and subsequent discharge home. Discharge orders instructions found in chart for further review. Total Time Total Time Spent Total Time Spent (In Minutes): 20 minutes Discharge Plan Discharge Items Patient Disposition: Home - Self-Care Reason For Visit: Lumbar Disc Herniation with Radiculopathy Discharge Diagnosis: Lumbar disc herniation with radiculopathy Activity: As commented below Non-emergency contact: Primary Care Provider Call non-emergency contact if: you have any medication questions Follow-up/Referrals: Sandy Chase DO [Primary Care Provider] - Diet: Regular Addtl Attending Provider Instructions: ACTIVITY RECOMMENDATIONS: SELF CARE INSTRUCTIONS AFTER THORACIC/LUMBAR FUSIONS 1. You may walk to your tolerance. It is good exercise for your legs and back. Expect some back and intermittent leg aches and pains. 2. You may perform "counter-top" level activities (make a sandwich, kevin with a project, etc.). 3. No bending or lifting of more than 10 pounds or back twisting of any nature (roll like a log when turning in bed). 4. You may ride in a car for 20-30 minutes at a time. No driving until after your first visit with your doctor. 5. Frequent changes of position and restricting sitting to 30 minutes at a time will help limit the amount of back spasms and stiffness you may experience. 6. You may discontinue the use of ambulatory aids (cane, crutches, etc.) once your strength and confidence allow. 7. You may assistance coordinator the shower and let water strike your incision when you arrive home at least once daily. Do not take a tub bath, sit in a hot tub or go into a swimming pool until after your first recheck in the office. SPECIAL CARE INSTRUCTIONS: VERY IMPORTANT TO READ AND REVIEW A. Your surgical incision has been closed with a cosmetic suture under the skin that will dissolve in about 6 weeks. In 14 days, you can use a pair of clean scissors and cut the suture that is left outside of the skin at the ends of your incision. 1. The small skin tapes can be removed 7 days after surgery if they have not fallen off by that point. 2. You may keep the wound open to air as much as possible to promote healing after post-op day number 5 unless told otherwise by your doctor. 3. If you think the wound looks like it is becoming infected (redness or worsening drainage) and/or you are experiencing fever, chill or worsening back pain and muscle spasms, contact the office so that we may evaluate you as soon as possible. B. Complications are uncommon, but please contact us if you have any signs or symptoms of: 1. wound infection (fever higher than 102.5 degrees F, redness, separation of wound, drainage, or increasing pain from the incision) 2. blood clots in legs (pain, swelling, redness and warmth in legs) 3. urinary tract infection (fever higher than 102.5 degrees F, burning upon urination or increased frequency of urination) 4. nerve problems (inability to walk on your toes or heels, numbness, loss of bowel or bladder control) 5. any other symptoms that concern you C. Please call the office at if you have any concerns or questions about your operation or recovery. D. No smoking! Smoking drastically decreases the chance of a solid fusion. E. Do not take any anti-inflammatory medications (Indocin, Advil, Motrin, Aspirin, Naprosyn, etc.) as these may inhibit the chance of a solid fusion. Tylenol is okay to take for pain. MANAGING PAIN AFTER SPINAL SURGERY 1. Narcotic medication is intended for short-term use and will be provided for surgical pain. Surgical pain usually lasts for a period of 4-6 weeks. Narcotic medication includes Percocet, Vicodin, Darvocet, Tylenol #3 or Lortab. 2. Longer-term pain is more appropriately treated with non-narcotic medication such as Tylenol ES. 3. Muscle spasm is not appropriately treated with narcotics. Muscle relaxers such as Soma, Flexeril or Skelaxin can be used along with Tylenol ES. 4. Remember that we all live with some "aches and pains". This is not unusual or uncommon after an injury or as we get older. a. Back pain is expected and may include muscle spasms for 4 to 6 weeks after surgery. The pain should gradually improve. If the pain worsens for no apparent reason, please contact the office. b. Intermittent leg pain may also be experienced and should not be concerned about unless it worsens for no apparent reason. If so, please contact the office. 5. We will provide appropriate medication within the normal guidelines of their prescribed use. We will also be very cautious and aware of potential abuse and extended duration of patients' medication needs. a. Pain medications are for your comfort and to assist with sleep and rest so that the tissue can heal. They are not provided in order to return to normal activity and should not be used through the day. To do so or worsening pain at night can result from ongoing tissue damage and development of tolerance to the prescribed medicine. 6. Please allow 2-3 days to process refills. Prescriptions will not be mailed but must be picked up at the office. FOLLOW UP VISIT: Keep your scheduled follow-up appointment. Any questions, please call the office at . Pending Studies at Discharge: No Stand-Alone Forms: [facility] [employer] [facility] Fees, Smoking Cessation Medications and DC Order Prescriptions: New oxycodone 5 mg tablet 5 mg PO Q6H PRN (Reason: pain) Qty: 30 0RF Continued albuterol sulfate 90 mcg/actuation HFA aerosol inhaler 2 inh inhalation Q6H PRN (Reason: Wheezing and SOB) Qty: 3 3RF (DME) miscellaneous medical supply Misc See Rx Instructions .Route Qty: 1 0RF Rx Instructions: As directed for HTN (DME) blood pressure test kit-medium Kit See Rx Instructions .Route Qty: 1 0RF Rx Instructions: As directed to check BP acetaminophen [Tylenol] 325 mg tablet 650 mg PO BID PRN (Reason: Pain) cyanocobalamin (vitamin B-12) [Vitamin B-12] 1,000 mcg Tablet 1,000 mcg PO QAM Discontinued ibuprofen 200 mg Tablet 200 mg PO Q6H PRN (Reason: Pain) Patient Comments: Has not taken in a few weeks Discharge Orders: Discharge Order (Routine); Ordered 10/19/23 Ordered By: Bienvenido Babb Admission Data Admit Date/Time: 10/17/23 11:44 Attending Provider: Bienvenido Babb Admit Provider: Bienvenido Babb Primary Care Provider: Sanyd Chase Other Providers: Cleo Maurice
[2023-10-19] MEDS: ACETAMINOPHEN 500 MG TAB PO PRN (15:15)
== END 2023-10-19 15:35 | disposition home or self-care (01) | DRG 454 ==
LOC: ASU 07:37 → 3E 11:44